=== PATIENT | female | born 1955 | race Asian ===

== ENCOUNTER 2017-07-09 06:23 | Day surgery (SDC) | payer BC ==
[2017-07-09] MEDS ORDERED: PROPOFOL 20 ML (07:27)
== END 2017-07-09 11:12 | disposition home or self-care (01) ==
LOC: GIL 06:23
DX: Z12.11 Encounter for screening for malignant neoplasm of colon (principal); D12.3 Benign neoplasm of transverse colon; K64.8 Other hemorrhoids
CPT/HCPCS: 45380; 82962